=== PATIENT | male | born 1945 | race Caucasian/White ===

== ENCOUNTER 2016-11-30 08:26 | Emergency (ER) | payer OTHER ==
--- NOTE | 2016-11-30 12:09 | DIAGNOSTIC IMAGING REPORT ---
PROCEDURE: ABDOMEN/PELVIS WITH CONTRAST CLINICAL INDICATION: ABDOMINAL PAIN TECHNIQUE: 125 ml of Isovue 300 were injected intravenously and axial images were obtained of the abdomen and pelvis with sagittal and coronal reformations. COMPARISON: None. FINDINGS: ABDOMEN: Strandy bibasilar posterior atelectatic changes/scarring, right greater than left. No effusion. Normal sized heart. No hiatal hernia. Several sub centimeter hypodensities scattered throughout the liver too small to characterize. Mild right hydronephrosis to the level of the ureteropelvic junction where there is a questionable 3 mm hyperdense focus with the appearance of a stone on coronal imaging but less dense on axial imaging. This is, however transition point between mildly dilated collecting system and nondilated ureter. There is moderate right perirenal stranding and slight fluid. Slightly delayed right nephrogram. The right ureter is nondilated and no other evidence of calculi. Appendix is normal. The gallbladder, adrenal glands, left kidney, pancreas and spleen are normal. The abdominal aorta is normal in its course and caliber. Moderate calcified and noncalcified atherosclerosis. There are no suspicious calcifications, retroperitoneal adenopathy or masses. The stomach, upper bowel loops, and mesentery are normal. Intact anterior abdominal wall. PELVIS: The pelvic small bowel loops are normal. Normal amount of stool in the colon and rectum. The prostate gland is moderately enlarged measuring 5.8 x 5.4 x 4.4 cm. Small fat containing right inguinal hernia. The seminal vesicles, urinary bladder, and pelvic vessels are normal. No adenopathy, free fluid, or pelvic mass. Severe degenerative disc height loss and endplate spurring at L4-5 resulting in moderate central canal stenosis at this level. Otherwise mild degenerative changes and intact osseous structures. IMPRESSION: 1. Probable 3 mm right ureteropelvic junction calculus causing mild right hydronephrosis and moderate right pararenal inflammation and fluid. 2. Normal appendix and bowel loops. 3. Moderate prostatomegaly. 4. Tiny hepatic hypodensities, probably benign. 5. Discussed with Dr. Fallon in the emergency room. All CT scans at this facility use dose modulation, iterative reconstruction, and/or weight-based dosing when appropriate to reduce radiation dose to as low as reasonably achievable.
--- NOTE | 2016-11-30 12:54 | ED NURSING NOTES ---
Clinical Report - Nurses [place] [address] [place] [address] 11/30/2016 8:26 [id number] Triage time 08:35. Acuity: LEVEL 3. Chief Complaint: ABDOMINAL PAIN, NAUSEA and VOMITING. AMARI COMA SCORE: [place] Coma Scale: 15- eyes open spontaneously (4); best verbal response- oriented x 4 (5); best motor response- obeys commands (6). --08:45 Reddy Graff R.N. 08:35 11/30/16. BP: 133/62 (regular adult cuff) taken on the left arm, while sitting. HR: 60. RR: 20. O2 saturation: 98% on room air. Temp: 97.6 F (oral). Pain level now: 11/30. --08:45 Reddy Graff R.N. Weight: 83.9 kg stated. Height/Length: 66 inches Per Patient. BMI: 29.9. --08:42 Reddy Graff R.N. Medications None. --08:36 Reddy Graff R.N. Allergies No Known Drug Allergy. --08:36 Reddy Graff R.N. History Arrived by private vehicle. Historian: patient. Accompanied by family. This started last night. ( able to drink fluids this am). SOCIAL HX: Former smoker, end date 2001 (cigarette). Occasional alcohol use. No drug use. ABUSE ASSESSMENT: No report of abuse. --08:45 Reddy Graff R.N. PROBLEMS: Rib Fracture. Asthma. --08:36 Reddy Graff R.N. ADDITIONAL SURGERIES: no known surgeries. Interventions ID band on patient. To treatment room. --08:45 Reddy Graff R.N. PHYSICAL ASSESSMENT late entry -08:45. Ambulatory to room. GENERAL / NEURO / PSYCH: Alert. Oriented X 4. Appears in pain. HEENT: Mucous membranes are pink. RESPIRATORY: Respirations not labored. Breath sounds within normal limits. CVS: Capillary refill less than 2 seconds. GI / : Abdomen soft. Abdominal tenderness present. Abdominal tenderness in the right upper quadrant. Bowel sounds within normal limits. SKIN: Skin is warm and dry. --08:51 Reddy Graff R.N. NURSING PROGRESS NOTES Patient gowned. Head of bed elevated. Reassurance given. Call light placed in reach. Bed placed in lowest position. Brakes of bed on. Patient ready for evaluation- chart flagged. --08:52 Reddy Graff R.N. 09:00 11/30/2016 Site #1 started via IV in the right hand with an 20g angiocath, with aseptic technique and good blood return; one attempt. Saline lock flushed with 10 mL saline. --09:10 Reddy Graff R.N. 09:02 11/30/2016 Started bag #1 1000 mL IV Fluids IV NS (Saline); bolus of 1000 mL over 1 minute(s) via site #1. Allergies verified and confirmed 5 rights. IV patency established. IV site checked: no pain, redness, or swelling. IV flushed thoroughly pre- and post-medication administration. --09:10 Reddy Graff R.N. 09:05 11/30/2016 Morphine IVP 2 mg given over 1 minute(s) via site #1. Allergies verified, confirmed 5 rights and sedative warning given to the patient. IV patency established. IV site checked: no pain, redness, or swelling. IV flushed thoroughly pre- and post-medication administration. IVP given by RN. --09:10 Reddy Graff R.N. 10:28 11/30/2016 Benadryl (DiphenhydrAMINE HCl) IVP 50 mg given over 2 minute(s) via site #1. Allergies verified, confirmed 5 rights and sedative warning given to the patient. IV patency established. IV site checked: no pain, redness, or swelling. IV flushed thoroughly pre- and post-medication administration. IVP given by RN. --10:30 Reddy Graff R.N. 11:15 11/30/16. BP: 152/71. HR: 74. RR: 16. O2 saturation: 94% on room air. Pain level now: 08/02. --12:10 Reddy Graff R.N. 10:00 11/30/16. HR: 72. RR: 19. O2 saturation: 94% on room air. Pain level now: 08/02. --12:10 Reddy Graff R.N. 11:45 11/30/16. BP: 146/74. HR: 73. RR: 16. O2 saturation: 94%. Pain level now: 08/02. --12:11 Reddy Graff R.N. 13:00. ( Urine strainers given to patient, and a specimen cup.). --13:10 Divine Driscoll R.N. DISPOSITION / DISCHARGE Departure time: 1304. Condition at departure: improved. No learning barriers present. Discharge instructions provided and reviewed. Reviewed medication(s) information. Prescription(s) given to the patient. Treatments reviewed (use urine strainers, collect stone if possible into specimen cup). Reviewed referral to a urologist and family practice for followup. Patient and spouse verbalized understanding. Written instructions provided. The patient was discharged home and accompanied by spouse. He left the Emergency Department ambulatory and via private vehicle. Spouse driving. FALL RISK ASSESSMENT: Fall risk assessment completed. No fall risk identified. --13:09 Divine Driscoll R.N. 13:03 11/30/16. BP: 133/71. HR: 75. RR: 18. O2 saturation: 94%. Temp: 98 F. Pain level now: 07/02. --13:09 Divine Driscoll R.N. Locked/Released at 11/30/2016 15:03 by Reddy Graff R.N.
--- NOTE | 2016-11-30 12:54 | ED ORDER SUMMARY ---
..... Patient: DELTA BENJAMIN OrderSheet [facility] VisitID: [id number] [place] [address] 71y, M Registration Date/Time: 11/30/2016 ORDER SHEET Weight: 83.9 kg (stated) Allergies: No Known Drug Allergy GENERAL ORDERS: CT Abd/Pel w Cont (No) (N/A) Urgent (08:43 11/30/2016 Byron Hurt) (Ack 8:45 TBergley) (10:14 TBergley) CBC w Diff Urgent (08:11/30/2016 Byron Hurt) (Ack 8:45 TBergley) (9:21 JSimbeck R.N.) CMP Urgent (:11/30/2016 Byron Hurt) (Ack 8:45 TBergley) (9:21 JSimbeck R.N.) UA-Culture if indicated Urgent (:11/30/2016 Byron Hurt) (Ack 8:45 TBergley) (Sent 9:21 JSimbeck R.N.) (11:20 JSimbeck R.N.) Amylase Urgent (08:11/30/2016 Byron Hurt) (Ack 8:45 TBergley) (9:21 JSimbeck R.N.) Lipase Urgent (08:11/30/2016 Byron Hurt) (Ack 8:45 TBergley) (9:21 JSimbeck R.N.) Pulse oximeter (08:11/30/2016 Byron Hurt) (Ack 8:45 TBergley) (8:48 JSimbeck R.N.) MEDICATION ORDERS: IV FLUIDS: IV NS : initial bolus 1000 mL (1000 mL/hr), then none - for X1 (NOW) (08:11/30/2016 Byron Hurt) (9:10 JSimbeck R.N.) Morphine IV 2 mg (HIGH ALERT MEDICATION, NOW) (08:44 11/30/2016 Byron Hurt) (9:10 JSimbeck R.N.) Benadryl IV 50 mg (NOW) (10:14 11/30/2016 Heaven ESTRADA) (10:30 Kia Aguilar) ORDER SHEET NOTES: [Electronically signed by Thompson Fallon DO (13:39 11/30/2016)] [Electronically signed by Reddy Graff R.N. (15:03 11/30/2016)] [Electronically locked/signed by Reddy Graff R.N. (15:03 11/30/2016)]
--- NOTE | 2016-11-30 12:54 | ED CLINICAL REPORT ---
Clinical Report - Physicians/Mid Levels [facility] [address] [place] [address] 11/30/2016 8:26 Patient: DELTA BENJAMIN Time Seen: 0838. Arrived- By private vehicle. Historian- patient. HISTORY OF PRESENT ILLNESS Chief Complaint: ABDOMINAL PAIN. At its maximum, severity described as moderate. When seen in the E.D., severity described as mild. Modifying factors. Not worsened by anything. Not relieved by anything. It is described as "pain". No radiation. It is described as located in the right lower quadrant. This started yesterday and is still present but is improving. It was abrupt in onset and has been constant but is not gone now. The patient has had nausea (now improved). No loss of appetite, vomiting or diarrhea. No additional abdominal pain. (states it started on the right flank then moved to the RLQ). No recent travel. Similar symptoms previously: None. Recent medical care: Not recently seen/assessed. REVIEW OF SYSTEMS No constipation, black stools, hematemesis, pain with urination or bloody stools. No fever, headache, chest pain, difficulty breathing or skin rash. No back pain. The patient has had urinary frequency. All systems otherwise negative, except as recorded above. PAST HISTORY See nurses notes. Asthma Rib fracture. Additional Surgeries: no known surgeries. Medications: None. Allergies: No Known Drug Allergy. SOCIAL HISTORY Former smoker. Occasional alcohol use. No drug use. No recent travel. Is a local resident. ADDITIONAL NOTES The nursing notes have been reviewed. PHYSICAL EXAM Vital Signs: 11/30/2016 08:35 BP: 133/62. HR: 60. RR: 20. O2 saturation: 98%. Temp: 97.6 F. Pain level now: 6/10. Blood pressure normal. Oxygen saturation normal. Appearance: Alert. Oriented X3. No acute distress. Eyes: Pupils equal, round and reactive to light. Eyes normal inspection. No scleral icterus. ENT: No pharyngeal erythema or tonsillar exudate. The mucous membranes are not dry. Neck: Normal inspection. Neck supple. CVS: Normal heart rate and rhythm. Heart sounds normal. Pulses normal. Respiratory: No respiratory distress. Breath sounds normal. Chest nontender. No rales, rhonchi or wheezes. Abdomen: Soft. Mild tenderness in the right lower quadrant. Bowel sounds normal. No organomegaly. No mass. Back: Normal inspection. No CVA tenderness. (no step offs. no crepitus.). Skin: Skin warm and dry. Normal skin color. No rash. Normal skin turgor. Neuro: No motor deficit. No sensory deficit. LABS, X-RAYS, AND EKG Abdominal CT: IMPRESSION: 1. Probable 3 mm right ureteropelvic junction calculus causing mild right hydronephrosis and moderate right pararenal inflammation and fluid. 2. Normal appendix and bowel loops. 3. Moderate prostatomegaly. 4. Tiny hepatic hypodensities, probably benign. Study type: abdomen and pelvis. Abdominal CT performed with IV contrast. The study was independently viewed by me, interpreted by the radiologist and discussed with the radiologist. Laboratory Tests: UA-Culture if indicated: (JOSE L: 11/30/2016 11:15) ( MsgRcvd 11/30/2016 11:37) Final results Test Result Flag Units (Reference) URINE COLOR YELLOW URINE APPEARANCE CLEAR URINE GLUCOSE NEGATIVE (NEGATIVE) URINE BILIRUBIN NEGATIVE (NEGATIVE) URINE KETONE 1+ (NEGATIVE) URINE SPECIFIC GRAVITY >= 1.030 (1.010-1.030) URINE PH 5.5 (5.0-8.0) URINE PROTEIN NEGATIVE (NEGATIVE) URINE UROBILINOGEN 0.2 EU/dL (0.2-1.0) URINE NITRITE NEGATIVE (NEGATIVE) URINE BLOOD 2+ (NEGATIVE) URINE LEUK ESTERASE NEGATIVE (NEGATIVE) URINE RBC 3-5 rbc/hpf (0-1) URINE WBC 1-3 wbc/hpf (0-1) URINE EPITHELIAL CELLS NONE SEEN EPI/hpf (0-5) URINE BACTERIA FEW (1+) (NONE SEEN) URINE COMMENT CULT NOT INDICATED 3-5 URIC ACID CRYSTALS.URINE CULTURES ARE SET-UP BASED ON THE FOLLOWING CRITERIA:POSITIVE NITRITEPOSITIVE LEUKOCYTE ESTERASEGREATER THAN 10 WHITE BLOOD CELLSMODERATE (2+) OR GREATER BACTERIA CBC w Diff: (JOSE L: 11/30/2016 09:20) ( MsgRcvd 11/30/2016 09:26) Final results Test Result Flag Units (Reference) WHITE BLOOD COUNT 12.5 H K/uL (4.5-11.5) RED BLOOD COUNT 3.75 L M/uL (4.50-5.90) HEMOGLOBIN 12.2 L gm/dL (13.5-17.5) HEMATOCRIT 36.9 L % (41.0-53.0) MEAN CELL VOLUME 98 fL (80-100) MEAN CORPUSCULAR HGB 33 pg (26-34) MEAN CORPUSCULAR HGB CONC 33 g/dL (31-37) RED CELL DISTRIBUTION WIDTH 17.3 H % (11.6-14.8) PLATELET COUNT 209 K/uL (150-400) NEUTROPHIL % 84.2 H % (50-75) LYMPH % 8.0 L % (25-40) MONO % 7.6 % (3-14) EOSINOPHIL % 0.1 % (0-4) BASOPHIL % 0.1 % (0-2) CMP: (JOSE L: 11/30/2016 09:20) ( MsgRcvd 11/30/2016 09:39) Final results Test Result Flag Units (Reference) GLUCOSE 125 H mg/dL (70-110) BUN 25 H mg/dL (7-18) CREATININE 1.2 mg/dL (0.6-1.3) Estimated GFR >60 mL/min Estimated GFR- >60 mL/min Note: Persistent reduction over 3 months in eGFR<60 mL/min/1.73 m2 defines CKD. Patients with eGFR values>=60 mL/min/1.73 m2 may also have CKD if evidence ofpersistent proteinuria. Additional information may be foundat www.kidney.org. SODIUM 139 mmol/L (136-145) POTASSIUM 4.5 mmol/L (3.5-5.1) CHLORIDE 104 mmol/L (98-107) CARBON DIOXIDE 23 mmol/L (21-32) CALCIUM 7.9 L mg/dL (8.5-10.1) TOTAL PROTEIN 6.9 g/dL (6.4-8.2) ALBUMIN 3.2 L g/dL (3.3-5.0) BILIRUBIN, TOTAL 0.7 mg/dL (0.0-1.0) ALKALINE PHOSPHATASE 61 U/L (46-116) AST (SGOT) 19 U/L (15-37) ALT (SGPT) 25 U/L (12-78) LIPASE 84 U/L (73-393) AMYLASE 37 U/L (25-115) . Pulse Oximetry: 11/30/2016 08:35 O2 saturation: 98%. (FIO2 - room air). Interpretation: normal. PROGRESS AND PROCEDURES Course of Care: Benadryl 50 mg IVP given. Zofran 4 mg IVP given. Morphine 2mg IVP given. the patient is a 71-year-old male presenting for evaluation of right lower quadrant abdominal pain. At this time differential diagnosis includes UTI, versus renal colic versus acute appendicitis. Medications have been ordered. Patient appears nontoxic. ordered CT scan as well as laboratory studies including urinalysis. Patient be signed over to the oncoming doctor at the change of shifts. Plan is follow up with the patient's laboratory studies, imaging, and disposition. - DN 11/30/2016 13:03 BP: 133/71. HR: 75. RR: 18. O2 saturation: 94%. Temp: 98 F. Pain level now: 10. Patient is stable. Physical exam findings are improved. Symptoms much better. Discussed case with health care provider. Patient/family counseled. Old ED records reviewed. Disposition: Discharged. Condition: stable and improved. CLINICAL IMPRESSION Ureterolithiasis (single stone) in the right ureter with renal colic and hydronephrosis. INSTRUCTIONS Do not work for three days. Drink plenty of fluids. No alcohol. Warnings: Further evaluation is necessary in order to recheck abnormal lab, obtain test results, conduct further tests and assess the possibility of serious illness. It is very important to follow up with a physician. GENERAL WARNINGS: Return or contact your physician immediately if your condition worsens or changes unexpectedly, if not improving as expected, or if other problems arise. Prescription Medications: Zofran (orally disintegrating tablets) 4 mg: take 1-2 orally every 8 hours as needed for nausea and vomiting. Dispense ten (10). No refill. Substitution is permissible. Ibuprofen 600mg tablets: take 1 tablet orally every 8 hours as needed for pain. Dispense thirty (30). No refills. Percocet 5 mg/325 mg: take 1 tablet orally every 6 hours as needed for pain. Dispense fifteen (15). No refills. Substitution is permissible. Follow-up: Follow up with your doctor in about two days. Follow up with a urologist- as recommended by your primary care physician. Call for the next available appointment. (Electronically signed by Thompson Fallon DO 11/30/2016 13:39)
--- NOTE | 2016-11-30 12:54 | ED ORDER SUMMARY ---
..... Patient: DELTA BENJAMIN OrderSheet [facility] VisitID: [id number] [place] [address] 71y, M Registration Date/Time: 11/30/2016 ORDER SHEET Weight: 83.9 kg (stated) Allergies: No Known Drug Allergy GENERAL ORDERS: CT Abd/Pel w Cont (No) (N/A) Urgent (08:43 11/30/2016 Byron Hurt) (Ack 8:45 TBergley) (10:14 TBergley) CBC w Diff Urgent (08:11/30/2016 Byron Hurt) (Ack 8:45 TBergley) (9:21 JSimbeck R.N.) CMP Urgent (:11/30/2016 Byron Hurt) (Ack 8:45 TBergley) (9:21 JSimbeck R.N.) UA-Culture if indicated Urgent (:11/30/2016 Byron Hurt) (Ack 8:45 TBergley) (Sent 9:21 JSimbeck R.N.) (11:20 JSimbeck R.N.) Amylase Urgent (08:11/30/2016 Byron Hurt) (Ack 8:45 TBergley) (9:21 JSimbeck R.N.) Lipase Urgent (08:11/30/2016 Byron Hurt) (Ack 8:45 TBergley) (9:21 JSimbeck R.N.) Pulse oximeter (08:11/30/2016 Byron Hurt) (Ack 8:45 TBergley) (8:48 JSimbeck R.N.) MEDICATION ORDERS: IV FLUIDS: IV NS : initial bolus 1000 mL (1000 mL/hr), then none - for X1 (NOW) (08:11/30/2016 Byron Hurt) (9:10 JSimbeck R.N.) Morphine IV 2 mg (HIGH ALERT MEDICATION, NOW) (08:44 11/30/2016 Byron Hurt) (9:10 JSimbeck R.N.) Benadryl IV 50 mg (NOW) (10:14 11/30/2016 Heaven ESTRADA) (10:30 Kia Aguilar) ORDER SHEET NOTES: [Electronically signed by Thompson Fallon DO (13:39 11/30/2016)] [Electronically signed by Reddy Graff R.N. (15:03 11/30/2016)] [Electronically locked/signed by Reddy Graff R.N. (15:03 11/30/2016)]
--- NOTE | 2016-11-30 15:03 | ED MAR SUMMARY ---
..... Medication Administration Record [facility] [address] [place] [address] Patient: DELTA BENJAMIN Visit ID: [id number] 71y, M Weight: 83.9 kg Height/Length: 66 in BMI: 29.9 ALLERGIES: No Known Drug Allergy Start 09:02 11/30/2016 Reddy Graff R.N. Medication Administered: IV NS (SALINE), Dose: IV Fluids, Bolus: 1000 mL over 1 minute(s), Dispensed: 1000 mL bag, Site: #1 right hand. Medication Ordered: IV NS : initial bolus 1000 mL (1000 mL/hr), then none - for X1 (NOW). Given 09:05 11/30/2016 Reddy Graff R.N. Medication Administered: MORPHINE [IVP], Dose: 2 mg IVP over 1 minute(s), Site: #1 right hand. Medication Ordered: Morphine IV 2 mg (HIGH ALERT MEDICATION, NOW). Given 10:28 11/30/2016 Reddy Graff R.N. Medication Administered: BENADRYL [IVP] (DIPHENHYDRAMINE HCL), Dose: 50 mg IVP over 2 minute(s), Site: #1 right hand. Medication Ordered: Benadryl IV 50 mg (NOW).
--- NOTE | 2016-11-30 15:03 | ED MAR SUMMARY ---
..... Medication Administration Record [facility] [address] [place] [address] Patient: DELTA BENJAMIN Visit ID: [id number] 71y, M Weight: 83.9 kg Height/Length: 66 in BMI: 29.9 ALLERGIES: No Known Drug Allergy Start 09:02 11/30/2016 Reddy Graff R.N. Medication Administered: IV NS (SALINE), Dose: IV Fluids, Bolus: 1000 mL over 1 minute(s), Dispensed: 1000 mL bag, Site: #1 right hand. Medication Ordered: IV NS : initial bolus 1000 mL (1000 mL/hr), then none - for X1 (NOW). Given 09:05 11/30/2016 Reddy Graff R.N. Medication Administered: MORPHINE [IVP], Dose: 2 mg IVP over 1 minute(s), Site: #1 right hand. Medication Ordered: Morphine IV 2 mg (HIGH ALERT MEDICATION, NOW). Given 10:28 11/30/2016 Reddy Graff R.N. Medication Administered: BENADRYL [IVP] (DIPHENHYDRAMINE HCL), Dose: 50 mg IVP over 2 minute(s), Site: #1 right hand. Medication Ordered: Benadryl IV 50 mg (NOW).
--- NOTE | 2016-11-30 15:03 | ED MED RECONCILIATION SUMMARY ---
Patient: DELTA BENJAMIN Medication Reconciliation Report [facility] VisitID: [id number] [address] [place] [address] 71y, M Registration Date/Time: 11/30/2016 Weight: 83.9 kg Height/Length: 66 in. BMI: 29.9 ALLERGIES: No Known Drug Allergy The patient's Home Medications are listed below: NONE. The source(s) of the original Home Medication information: Not obtained. The following Medications were given to the patient in the Emergency Department: IV NS IV Fluids bolus 1000 mL over 1 minute(s), administered: 11/30/2016 9:02:00 AM Morphine [IVP] IVP 2 mg, administered: 11/30/2016 9:05:00 AM Benadryl [IVP] IVP 50 mg, administered: 11/30/2016 10:28:00 AM The following Medications were prescribed to the patient: Zofran (orally disintegrating tablets) 4 mg: take 1-2 orally every 8 hours as needed for nausea and vomiting. Dispense ten (10). No refill. Substitution is permissible. -- Thompson Fallon DO Ibuprofen 600mg tablets: take 1 tablet orally every 8 hours as needed for pain. Dispense thirty (30). No refills. -- Thompson Fallon DO Percocet 5 mg/325 mg: take 1 tablet orally every 6 hours as needed for pain. Dispense fifteen (15). No refills. Substitution is permissible. -- Thompson Fallon DO
--- NOTE | 2016-11-30 15:03 | ED DISCHARGE INSTRUCTIONS ---
Patient: DELTA BENJAMIN General Instructions VisitID: [id number] [place] [address] 71y, M Registration Date/Time: 11/30/2016 Ureterolithiasis (single stone) in the right ureter with renal colic and hydronephrosis. INSTRUCTIONS Do not work for three days. Drink plenty of fluids. No alcohol. Warnings: Further evaluation is necessary in order to recheck abnormal lab, obtain test results, conduct further tests and assess the possibility of serious illness. It is very important to follow up with a physician. GENERAL WARNINGS: Return or contact your physician immediately if your condition worsens or changes unexpectedly, if not improving as expected, or if other problems arise. Prescription Medications: Zofran (orally disintegrating tablets) 4 mg: take 1-2 orally every 8 hours as needed for nausea and vomiting. Dispense ten (10). No refill. Substitution is permissible. Ibuprofen 600mg tablets: take 1 tablet orally every 8 hours as needed for pain. Dispense thirty (30). No refills. Percocet 5 mg/325 mg: take 1 tablet orally every 6 hours as needed for pain. Dispense fifteen (15). No refills. Substitution is permissible. Follow-up: Follow up with your doctor in about two days. Follow up with a urologist- as recommended by your primary care physician. Call for the next available appointment. ADDITIONAL INFORMATION Kidney Stone (W/ Colic) The sharp cramping pain and nausea/vomiting that you have is due to a small stone which has formed in the kidney and is now passing down a narrow tube (ureter) on its way to your bladder. Once it reaches your bladder, the pain will stop. The stone may pass in your urine stream in one piece. [The size may be 1/16" to 1/4" (1-6mm)]. Or, the stone may also break up into alyssa fragments which you may not even notice. Once you have had a kidney stone, you are at risk for developing another one in the future. Home Care: Drink plenty of fluids (at least 8 to 10 glasses of water a day). Most stones will pass on their own, but may take from a few hours to a few days. Sometimes the stone is too large to pass by itself and special methods will have to be used to remove the stone. Each time you urinate, do so in a jar. Pour the urine from the jar through the strainer and into the toilet. Continue doing this until 24 hours after your pain stops. By then, if there was a kidney stone, it should pass from your bladder. Some stones dissolve into sand-like particles and pass right through the strainer. In that case, you wont ever see a stone. Save any stone that you find in the strainer and bring it to your doctor for analysis. It may be possible to prevent certain types of stones from forming. Therefore, it is important to know what kind of stone you have. Try to stay as active as possible since this will help the stone pass. Do not stay in bed unless your pain prevents you from getting up. You may notice a red, pink or brown color to your urine. This is normal while passing a kidney stone. Follow Up with your doctor or return to this facility if the pain lasts more than 48 hours. Get Prompt Medical Attention if any of the following occur: Pain that is not controlled by the medicine given Repeated vomiting or unable to keep down fluids Weakness, dizziness or fainting Fever of 100.4F (38C) or higher, or as directed by your healthcare provider Passage of solid red or brown urine (can't see through it) or urine with lots of blood clots Unable to pass urine for 8 hours and increasing bladder pressure Ondansetron Oral disintegrating tablet What is this medicine? ONDANSETRON (on JESS se clotilde) is used to treat nausea and vomiting caused by chemotherapy. It is also used to prevent or treat nausea and vomiting after surgery. How should I use this medicine? These tablets are made to dissolve in the mouth. Do not try to push the tablet through the foil backing. With dry hands, peel away the foil backing and gently remove the tablet. Place the tablet in the mouth and allow it to dissolve, then swallow. While you may take these tablets with water, it is not necessary to do so. Talk to your hitting coach regarding the use of this medicine in children. Special care may be needed. What side effects may I notice from receiving this medicine? Side effects that you should report to your doctor or health lawn care professional as soon as possible: allergic reactions like skin rash, itching or hives, swelling of the face, lips, or tongue breathing problems dizziness fast or irregular heartbeat feeling faint or lightheaded, falls fever and chills swelling of the hands and feet tightness in the chest Side effects that usually do not require medical attention (report to your doctor or health lawn care professional if they continue or are bothersome): constipation or diarrhea headache What may interact with this medicine? Do not take this medicine with any of the following medications: -apomorphine -cisapride -dofetilide -dronedarone -pimozide -thioridazine -ziprasidone This medicine may also interact with the following medications: -carbamazepine -phenytoin -rifampicin -tramadol -other medicines that prolong the QT interval (cause an abnormal heart rhythm) What if I miss a dose? If you miss a dose, take it as soon as you can. If it is almost time for your next dose, take only that dose. Do not take double or extra doses. Where should I keep my medicine? Keep out of the reach of children. Store between 2 and 30 degrees C (36 and 86 degrees F). Throw away any unused medicine after the expiration date. What should I tell my health care provider before I take this medicine? They need to know if you have any of these conditions: heart disease history of irregular heartbeat liver disease low levels of magnesium or potassium in the blood an unusual or allergic reaction to ondansetron, granisetron, other medicines, foods, dyes, or preservatives or trying to get breast-feeding What should I watch for while using this medicine? Check with your doctor or health lawn care professional as soon as you can if you have any sign of an allergic reaction. Ibuprofen Oral tablet What is this medicine? IBUPROFEN (eye BYOO proe fen) is a non-steroidal anti-inflammatory drug (NSAID). It is used for dental pain, fever, headaches or migraines, osteoarthritis, rheumatoid arthritis, or painful monthly periods. It can also relieve minor aches and pains caused by a cold, flu, or sore throat. How should I use this medicine? Take this medicine by mouth with a glass of water. Follow the directions on the prescription label. Take this medicine with food if your stomach gets upset. Try to not lie down for at least 10 minutes after you take the medicine. Take your medicine at regular intervals. Do not take your medicine more often than directed. A special MedGuide will be given to you by the pharmacist with each prescription and refill. Be sure to read this information carefully each time. Talk to your hitting coach regarding the use of this medicine in children. Special care may be needed. What side effects may I notice from receiving this medicine? Side effects that you should report to your doctor or health lawn care professional as soon as possible: allergic reactions like skin rash, itching or hives, swelling of the face, lips, or tongue black or bloody stools, blood in the urine or in vomit breathing problems changes in vision chest pain general ill feeling or flu-like symptoms nausea or vomiting redness, blistering, peeling or loosening of the skin, including inside the mouth slurred speech or weakness on one side of the body stomach pain unexplained weight gain or swelling unusually weak or tired yellowing of eyes or skin Side effects that usually do not require medical attention (report to your doctor or health lawn care professional if they continue or are bothersome): constipation or diarrhea dizziness gas or heartburn stomach upset What may interact with this medicine? Do not take this medicine with any of the following medications: cidofovir ketorolac methotrexate pemetrexed This medicine may also interact with the following medications: alcohol aspirin diuretics lithium other drugs for inflammation like prednisone warfarin What if I miss a dose? If you miss a dose, take it as soon as you can. If it is almost time for your next dose, take only that dose. Do not take double or extra doses. Where should I keep my medicine? Keep out of the reach of children. Store at room temperature between 15 and 30 degrees C (59 and 86 degrees F). Keep container tightly closed. Throw away any unused medicine after the expiration date. What should I tell my health care provider before I take this medicine? They need to know if you have any of these conditions: asthma cigarette smoker drink more than 3 alcohol containing drinks a day heart disease or circulation problems such as heart failure or leg edema (fluid retention) high blood pressure kidney disease liver disease stomach bleeding or ulcers an unusual or allergic reaction to ibuprofen, aspirin, other NSAIDS, other medicines, foods, dyes, or preservatives or trying to get breast-feeding What should I watch for while using this medicine? Tell your doctor or healthcare professional if your symptoms do not start to get better or if they get worse. This medicine does not prevent heart attack or stroke. In fact, this medicine may increase the chance of a heart attack or stroke. The chance may increase with longer use of this medicine and in people who have heart disease. If you take aspirin to prevent heart attack or stroke, talk with your doctor or health lawn care professional. Do not take other medicines that contain aspirin, ibuprofen, or naproxen with this medicine. Side effects such as stomach upset, nausea, or ulcers may be more likely to occur. Many medicines available without a prescription should not be taken with this medicine. This medicine can cause ulcers and bleeding in the stomach and intestines at any time during treatment. Ulcers and bleeding can happen without warning symptoms and can cause . To reduce your risk, do not smoke cigarettes or drink alcohol while you are taking this medicine. You may get drowsy or dizzy. Do not drive, use machinery, or do anything that needs mental alertness until you know how this medicine affects you. Do not stand or sit up quickly, especially if you are an older patient. This reduces the risk of dizzy or fainting spells. This medicine can cause you to bleed more easily. Try to avoid damage to your teeth and gums when you brush or floss your teeth. Oxycodone Hydrochloride, Acetaminophen Oral tablet What is this medicine? ACETAMINOPHEN; OXYCODONE (a set a RIA sarika fen; ox i KOE done) is a pain reliever. It is used to treat mild to moderate pain. How should I use this medicine? Take this medicine by mouth with a full glass of water. Follow the directions on the prescription label. Take your medicine at regular intervals. Do not take your medicine more often than directed. Talk to your hitting coach regarding the use of this medicine in children. Special care may be needed. Patients over 65 years old may have a stronger reaction and need a smaller dose. What side effects may I notice from receiving this medicine? Side effects that you should report to your doctor or health lawn care professional as soon as possible: allergic reactions like skin rash, itching or hives, swelling of the face, lips, or tongue breathing difficulties, wheezing confusion light headedness or fainting spells severe stomach pain yellowing of the skin or the whites of the eyes Side effects that usually do not require medical attention (report to your doctor or health lawn care professional if they continue or are bothersome): dizziness drowsiness nausea vomiting What may interact with this medicine? alcohol antihistamines barbiturates like amobarbital, butalbital, butabarbital, methohexital, pentobarbital, phenobarbital, thiopental, and secobarbital benztropine drugs for bladder problems like solifenacin, trospium, oxybutynin, tolterodine, hyoscyamine, and methscopolamine drugs for breathing problems like ipratropium and tiotropium drugs for certain stomach or intestine problems like propantheline, homatropine methylbromide, glycopyrrolate, atropine, belladonna, and dicyclomine general anesthetics like etomidate, ketamine, nitrous oxide, propofol, desflurane, enflurane, halothane, isoflurane, and sevoflurane medicines for depression, anxiety, or psychotic disturbances medicines for sleep muscle relaxants naltrexone narcotic medicines (opiates) for pain phenothiazines like perphenazine, thioridazine, chlorpromazine, mesoridazine, fluphenazine, prochlorperazine, promazine, and trifluoperazine scopolamine tramadol trihexyphenidyl What if I miss a dose? If you miss a dose, take it as soon as you can. If it is almost time for your next dose, take only that dose. Do not take double or extra doses. Where should I keep my medicine? Keep out of the reach of children. This medicine can be abused. Keep your medicine in a safe place to protect it from theft. Do not share this medicine with anyone. Selling or giving away this medicine is dangerous and against the law. Store at room temperature between 20 and 25 degrees C (68 and 77 degrees F). Keep container tightly closed. Protect from light. This medicine may cause accidental overdose and if it is taken by other adults, children, or pets. Flush any unused medicine down the toilet to reduce the chance of harm. Do not use the medicine after the expiration date. What should I tell my health care provider before I take this medicine? They need to know if you have any of these conditions: brain tumor Crohn's disease, inflammatory bowel disease, or ulcerative colitis drink more than 3 alcohol containing drinks per day drug abuse or addiction head injury heart or circulation problems kidney disease or problems going to the bathroom liver disease lung disease, asthma, or breathing problems an unusual or allergic reaction to acetaminophen, oxycodone, other opioid analgesics, other medicines, foods, dyes, or preservatives or trying to get breast-feeding What should I watch for while using this medicine? Tell your doctor or health lawn care professional if your pain does not go away, if it gets worse, or if you have new or a different type of pain. You may develop tolerance to the medicine. Tolerance means that you will need a higher dose of the medication for pain relief. Tolerance is normal and is expected if you take this medicine for a long time. Do not suddenly stop taking your medicine because you may develop a severe reaction. Your body becomes used to the medicine. This does NOT mean you are addicted. Addiction is a behavior related to getting and using a drug for a non-medical reason. If you have pain, you have a medical reason to take pain medicine. Your doctor will tell you how much medicine to take. If your doctor wants you to stop the medicine, the dose will be slowly lowered over time to avoid any side effects. You may get drowsy or dizzy. Do not drive, use machinery, or do anything that needs mental alertness until you know how this medicine affects you. Do not stand or sit up quickly, especially if you are an older patient. This reduces the risk of dizzy or fainting spells. Alcohol may interfere with the effect of this medicine. Avoid alcoholic drinks. There are different types of narcotic medicines (opiates) for pain. If you take more than one type at the same time, you may have more side effects. Give your health care provider a list of all medicines you use. Your doctor will tell you how much medicine to take. Do not take more medicine than directed. Call emergency for help if you have problems breathing. The medicine will cause constipation. Try to have a bowel movement at least every 2 to 3 days. If you do not have a bowel movement for 3 days, call your doctor or health lawn care professional. Do not take Tylenol (acetaminophen) or medicines that have acetaminophen with this medicine. Too much acetaminophen can be very dangerous. Many nonprescription medicines contain acetaminophen. Always read the labels carefully to avoid taking more acetaminophen. You have been given the following additional information: Kidney Stone W/ Colic Ondansetron Oral disintegrating tablet Ibuprofen Oral tablet Oxycodone Hydrochloride, Acetaminophen Oral tablet Do not work for three days. (Electronically signed by Thompson Fallon DO 11/30/2016 13:39)
--- NOTE | 2016-11-30 15:03 | ED MED RECONCILIATION SUMMARY ---
Patient: DELTA BENJAMIN Medication Reconciliation Report [facility] VisitID: [id number] [address] [place] [address] 71y, M Registration Date/Time: 11/30/2016 Weight: 83.9 kg Height/Length: 66 in. BMI: 29.9 ALLERGIES: No Known Drug Allergy The patient's Home Medications are listed below: NONE. The source(s) of the original Home Medication information: Not obtained. The following Medications were given to the patient in the Emergency Department: IV NS IV Fluids bolus 1000 mL over 1 minute(s), administered: 11/30/2016 9:02:00 AM Morphine [IVP] IVP 2 mg, administered: 11/30/2016 9:05:00 AM Benadryl [IVP] IVP 50 mg, administered: 11/30/2016 10:28:00 AM The following Medications were prescribed to the patient: Zofran (orally disintegrating tablets) 4 mg: take 1-2 orally every 8 hours as needed for nausea and vomiting. Dispense ten (10). No refill. Substitution is permissible. -- Thompson Fallon DO Ibuprofen 600mg tablets: take 1 tablet orally every 8 hours as needed for pain. Dispense thirty (30). No refills. -- Thompson Fallon DO Percocet 5 mg/325 mg: take 1 tablet orally every 6 hours as needed for pain. Dispense fifteen (15). No refills. Substitution is permissible. -- Thompson Fallon DO
== END 2016-11-30 13:04 | disposition home or self-care (01) ==
LOC: ED SRH 08:26
DX: N13.2 Hydronephrosis with renal and ureteral calculous obstruction (principal); Z87.891 Personal history of nicotine dependence
CPT/HCPCS: 90004; 90100; 92235; 92530; 95059